=== PATIENT | male | born 1995 | race Caucasian/White ===

== ENCOUNTER 2017-06-02 23:02 | Emergency (ER) | payer OTHER ==
[~2017-06-02] VITALS: Ht 177.8 cm; Wt 65.8 kg
[~2017-06-02 23:02] MED LIST: MOTRIN800 MG PO
[2017-06-02 23:50] LABS: BASO % 0.5 % (0.0-1.0); EOS # 0.1 10*3/uL (0.0-0.4); EOS % 0.7 % (1.0-4.0); HEMATOCRIT 50.4 % (42.0-52.0); HEMOGLOBIN 17.2 g/dl (14.0-18.0); LYMPH # 1.9 10*3/uL (1.3-4.4); LYMPH % 22.8 % (27.0-41.0); MEAN CELL VOLUME 92.8 fl (80.0-94.0); MEAN CORPUSCULAR HGB 31.7 pg (27.0-31.0); MEAN CORPUSCULAR HGB CONC 34.1 g/dl (33.0-37.0); MEAN PLATELET VOLUME 10.3 fl (9.6-12.3); MONO # 1.4 10*3/uL (0.1-1.0); MONO % 16.4 % (3.0-9.0); NEUT # 4.9 10*3/uL (2.3-7.9); NEUT % 59.4 % (47.0-73.0); PLATELET COUNT AUTOMATED 209 10*3/uL (130-400); RED BLOOD COUNT 5.43 10*6/uL (4.50-5.90); WHITE BLOOD COUNT 8.3 10*3/uL (4.8-10.8)
[2017-06-03 00:04] LABS: ALBUMIN 3.9 gm/dl (3.1-4.5); ALKALINE PHOSPHATASE 60 U/L (45-117); BUN 9 mg/dl (7-24); CHLORIDE 100 mmol/L (98-107); CREATININE 0.95 mg/dL (0.70-1.30); POTASSIUM 3.8 mmol/L (3.5-5.1); SGOT/AST 32 IU/L (3-35); SGPT/ALT 78 U/L (12-78); SODIUM 136 mmol/L (136-145)
[2017-06-03 00:39] LABS: BILIRUBIN NEGATIVE (NEGATIVE); BLOOD NEGATIVE (NEGATIVE); CLARITY CLEAR (CLEAR); COLOR YELLOW (YELLOW); GLUCOSE NEGATIVE (NEGATIVE); KETONE NEGATIVE (NEGATIVE); LEUKO ESTERASE NEGATIVE (NEGATIVE); NITRITE NEGATIVE (NEGATIVE); PH 6.5 (5.0-9.0)
[2017-06-03 00:45] LABS: BACTERIA 1+; WBC 0-2 wbc/hpf (0-5)
== END 2017-06-03 01:08 | disposition home or self-care (01) ==
LOC: ED 23:02
PROVIDERS: Emergency Medicine
DX: B34.9 Viral infection, unspecified (principal); F17.200 Nicotine dependence, unspecified, uncomplicated

== ENCOUNTER 2017-11-11 12:34 | Emergency (ER) | payer OTHER ==
[~2017-11-11] VITALS: Ht 177.8 cm; Wt 65.8 kg
[2017-11-11] MEDS ORDERED: VIVITROL380 MG IM (12:39)
[2017-11-11] MEDS ORDERED: ROBITUSSIN DM 105 ML PO (14:42)
[2017-11-11] MEDS ORDERED: AMOXICILLIN500 M2 PO (14:42)
[2017-11-11] MEDS ORDERED: PROAIR HFA8.5 GM INH (14:42)
== END 2017-11-11 14:48 | disposition home or self-care (01) ==
LOC: ED 12:34
DX: J20.9 Acute bronchitis, unspecified (principal); F17.200 Nicotine dependence, unspecified, uncomplicated

== ENCOUNTER 2020-06-03 11:07 | Emergency (ER) | payer OTHER ==
[~2020-06-03] VITALS: Ht 177.8 cm; Wt 80.7 kg
[~2020-06-03 11:07] MED LIST changes: +AMOXICILLIN500 M2 PO; +PROAIR HFA8.5 GM INH; +ROBITUSSIN DM 105 ML PO; +VIVITROL380 MG IM
[2020-06-03] MEDS ORDERED: CYCLOBENZAPRINE5 M3 PO (11:34)
[2020-06-03] MEDS ORDERED: Motrin,Rufen800 MG PO (11:34)
== END 2020-06-03 11:58 | disposition home or self-care (01) ==
LOC: ED 11:07
DX: S46.911A Strain of unspecified muscle, fascia and tendon at shoulder and upper arm level, right arm, initial encounter (principal); X50.9XXA Other and unspecified overexertion or strenuous movements or postures, initial encounter; Y93.89 Activity, other specified; Y92.89 Other specified places as the place of occurrence of the external cause; Y99.8 Other external cause status

== ENCOUNTER 2022-04-02 21:57 | Emergency (ER) | payer OTHER ==
[~2022-04-02] VITALS: Ht 180.3 cm; Wt 93.4 kg
[~2022-04-02 21:57] MED LIST changes: +CYCLOBENZAPRINE5 M3 PO; +Motrin,Rufen800 MG PO
[2022-04-03] MEDS ORDERED: SEPTDS PO (16:13)
[2022-04-03] MEDS ORDERED: CEPHALEXIN500 M1 PO (16:13)
== END 2022-04-02 22:54 | disposition left against medical advice (07) ==
LOC: ED 21:57
DX: L02.413 Cutaneous abscess of right upper limb (principal); Z79.899 Other long term (current) drug therapy

== ENCOUNTER 2022-04-03 15:31 | Emergency (ER) | payer OTHER ==
[~2022-04-03] VITALS: Ht 177.8 cm; Wt 93.4 kg
[2022-04-03] MEDS ORDERED: CEPHALEXIN500 M1 PO (16:13)
[2022-04-03] MEDS ORDERED: SEPTDS PO (16:13)
== END 2022-04-03 16:25 | disposition home or self-care (01) ==
LOC: ED 15:31
DX: L02.413 Cutaneous abscess of right upper limb (principal); Z79.899 Other long term (current) drug therapy; Z48.03 Encounter for change or removal of drains

== ENCOUNTER 2025-06-16 17:38 | Emergency (ER) | payer SELFPAY ==
[~2025-06-16] VITALS: Ht 177.8 cm; Wt 108.9 kg
[~2025-06-16 17:38] MED LIST changes: +CEPHALEXIN500 M1 PO; +SEPTDS PO
== END 2025-06-16 18:29 | disposition home or self-care (01) ==
LOC: ED 17:38
DX: R51.9 Headache, unspecified (principal); R11.2 Nausea with vomiting, unspecified; R19.7 Diarrhea, unspecified; R09.81 Nasal congestion; Z88.6 Allergy status to analgesic agent